=== PATIENT | male | born 1990 | race Caucasian/White ===

== ENCOUNTER 2017-05-03 06:01 | Emergency (ER) | payer SELFPAY ==
[~2017-05-03] VITALS: Ht 175.3 cm; Wt 60.3 kg
[2017-05-03] MEDS ORDERED: MVI, ADULT NO.4 WITH VIT K 10 ML, FOLIC ACID SYRINGE for ER 1 MG, THIAMINE 100 MG in IV... IV SCH ×4 (06:30)
[2017-05-03 06:41] LABS: BASO % 1 % (0-3); EOS # 0.1 x10^3/uL (0.0-0.7); EOS % 1 % (0-3); HEMATOCRIT 39.9 % (39.0-53.0); HEMOGLOBIN 13.9 g/dL (13.0-17.5); LYMPH # 1.4 x10^3/uL (1.0-4.8); LYMPH % 21 % (24-48); MEAN CORPUSCULAR HEMOGLOBIN 31 pg (25-35); MEAN CORPUSCULAR HGB CONC 35 g/dL (31-37); MEAN CORPUSCULAR VOLUME 89 fL (79-100); MONO # 0.7 x10^3/uL (0.0-1.1); MONO % 11 % (0-9); NEUT # 4.2 x10^3uL (1.8-7.7); NEUT % 66 % (31-73); PLATELET COUNT 174 x10^3/uL (140-400); RED CELL DISTRIBUTION WIDTH 12.6 % (11.5-14.5); WHITE BLOOD COUNT 6.4 x10^3/uL (4.0-11.0)
[2017-05-03] MEDS ORDERED: THIAMINE 200 MG/2 ML VIAL. IV ONE ×2 (06:42→06:44)
[2017-05-03] MEDS ORDERED: IV NORMAL SALINE 1,000ML 1,000 ML ONE (06:42)
[2017-05-03] MEDS ORDERED: MVI, ADULT NO.4 WITH VIT K 10 ML VIAL IV ONE ×2 (06:43→06:44)
[2017-05-03] MEDS ORDERED: FOLIC ACID 5 MG/ML SYRINGE for ER IV ONE ×2 (06:43→06:44)
[2017-05-03 06:53] LABS: ALBUMIN 3.8 g/dL (3.4-5.0); BACTERIA,URINE 0 /HPF (0-FEW); BARBITURATES NEG (NEG); BENZODIAZEPINES NEG (NEG); BILIRUBIN,URINE NEG (NEG); CALCIUM 8.7 mg/dL (8.5-10.1); CANNABINOIDS NEG (NEG); CLARITY,URINE CLEAR; COCAINE NEG (NEG); COLOR,URINE AMBER; CREATININE 0.9 mg/dL (0.7-1.3); DIRECT BILIRUBIN 0.2 mg/dL (0.0-0.2); GFR 101.2; GLUCOSE,URINE NEG (NEG); MAGNESIUM 2.2 mg/dL (1.8-2.4); METHADONE NEG (NEG); NITRITE,URINE NEG (NEG); OPIATES NEG (NEG); PHENCYCLIDINE NEG (NEG); POTASSIUM 3.1 mmol/L (3.5-5.1); RBC,URINE 0 /HPF (0-2); SQUAMOUS EPITHELIAL CELL,UR OCC /LPF; TOTAL BILIRUBIN 0.6 mg/dL (0.2-1.0); TOTAL PROTEIN 7.1 g/dL (6.4-8.2); UROBILINOGEN,URINE 1 mg/dL (0.2 mg/dL); WBC,URINE 0 /HPF (0-4)
[2017-05-03 06:55] LABS: AMPHETAMINE/METHAMPHETAMINE POS (NEG)
--- NOTE | 2017-05-03 07:10 | RAD ---
Portable chest, 05/03/2017 History: Overdose. The heart size is normal. The lungs are clear. There is no evidence of pleural fluid. IMPRESSION: Normal chest.
--- NOTE | 2017-05-03 07:14 | PHYS DOC ---
General Chief Complaint: DRUG ABUSE Stated Complaint: OVERDOSE Time Seen by MD: 06:03 Source: patient Exam Limitations: no limitations Problems: History of Present Illness Initial Comments Patient is a 26-year-old male who comes to the ED complaining of methamphetamine abuse. Patient states that he uses methamphetamine recreationally he says this is an occasional activity. He says he's had overdoses in the past I wanted to make sure that wasn't the case today. He says he's been using methamphetamines intravenously for the past 4 days, claims he used up to 2 g. He is here because he feels very dehydrated and is hoping to get some IV fluids and he has a headache with activity but improved with rest his mouth feels very dry and he feels very tired and sore. No chest pain or trouble breathing no focal neurologic deficit no hemoptysis unexplained weight loss. ED vital signs: 98.3, 94, 19, 130/79, 100% Timing/Duration: 1 week Severity: severe Modifying Factors: improves with rest Associated Symptoms: headaches, malaise, weakness Allergies: Coded Allergies: No Known Drug Allergies (Unverified , 05/03/17) Past Medical History Medical History: no pertinent history Surgical History: noncontributory Social History Smoker: cigarettes Alcohol: occasionally Drugs: other (methamphetamine) Review of Systems Constitutional: denies chills, denies diaphoresis, denies fever, malaise, weakness Respiratory: denies cough, denies shortness of breath, denies wheezing Cardiovascular: denies chest pain, denies palpitations, denies syncope Gastrointestinal: denies abdominal pain, denies nausea, denies vomiting Genitourinary: denies dysuria, denies frequency, denies hematuria Musculoskeletal: denies joint swelling, muscle pain (patient is chest), denies neck pain Psychiatric/Neurological: see HPI, anxiety, denies depressed, headache Hematologic/Lymphatic: denies blood clots, denies easy bleeding, denies easy bruising Physical Exam General Appearance: no apparent distress, thin Eyes: bilateral eye normal inspection, bilateral eye PERRL, bilateral eye EOMI Ear, Nose, Throat: hearing grossly normal, normal ENT inspection (dry membranes ), normal pharynx Neck: non-tender, supple Respiratory: normal breath sounds, no respiratory distress Cardiovascular: normal peripheral pulses, regular rate, rhythm Gastrointestinal: non tender, soft Back: no CVA tenderness, no vertebral tenderness Extremities: non-tender, normal inspection Neurologic/Psychiatric: ward aide II-XII nml as tested, no motor/sensory deficits, alert, normal mood/affect, oriented x 3 Skin: warm/dry (poor turgor) Orders, Labs, Meds PATIENT: TRAVIS VILLALPANDO ACCOUNT: [id number] : 1990 LOCATION: ER AGE: 26 SEX: M EXAM STATUS: REG ER ORD. PHYSICIAN: REMBERTO THOMAS DO REASON: OD PROCEDURE: PORTABLE CHEST 1V Portable chest, 05/03/2017 History: Overdose. The heart size is normal. The lungs are clear. There is no evidence of pleural fluid. IMPRESSION: Normal chest. DICTATED AND SIGNED BY: YOANNA ANTONIO MD DATE: 05/03/17 07 CC: PCP,NO; REMBERTO THOMAS DO ~ K+ 3.1, CK 324, UA +methamphetamine other labs reassuring. 40meq KCL PO given in ED, pt feeling better already with IV hydration (banana bag) 0737: Pt rechecked again, still feeling well no new/progressive complaints. 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 He states this is an occasional recreational activity that pt feels "went too far this time." Although pt also admits to "meth overdose" in past. He expresses agreement/understanding with treatment plan. Advised to seek treatment for substance abuse. Departure Time of Disposition: 07:40 Disposition: 01 HOME, SELF-CARE Diagnosis: methamphetamine abuse, hypokalemia, elev CK Condition: GOOD Patient Instructions: Creatine Kinase (CK), Hypokalemia-Brief, Methamphetamine Abuse, Complications Additional Instructions: Off work today, note given. Aggressive hydration with Gatorade and water about checked. 1 banana twice daily until doctor recheck. OTC multivitamins daily per package instructions. Prescription: Klor-Con potassium supplementation as written. Discontinue methamphetamine/substance abuse. Seek medical assistance if necessary. As discussed he will need close outpatient PCP follow-up to recheck her potassium and creatine kinase. Call today to schedule an appointment with your doctor for tomorrow for recheck of these labs and his current symptoms. It do not have a doctor ED staff can provide you names and numbers of local doctors taking new patients and highlight those who accept walk-in appointments. Return to the emergency department with new or changing symptoms. REMBERTO THOMAS DO May 03, 2017 07:14
--- NOTE | 2017-05-03 07:16 | EKG ---
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
[2017-05-03] MEDS ORDERED: POTA20TA4 PO (07:42)
[2017-05-03] MEDS ORDERED: POTASSIUM CHLORIDE 20 MEQ/15 ML ORAL LIQUID. PO ONE (07:45)
[2017-05-03] MEDS ORDERED: POTA10CA PO (07:52)
[2017-05-03 08:00] VITALS: BP 131/79
== END 2017-05-03 08:02 | disposition home or self-care (01) ==
LOC: ER 06:01
DX: E87.6 Hypokalemia (principal); F15.10 Other stimulant abuse, uncomplicated; R74.8 Abnormal levels of other serum enzymes; F17.210 Nicotine dependence, cigarettes, uncomplicated
CPT/HCPCS: 36415; 71010; 80048; 80076; 80307; 81001; 82550; 83735; 84484; 85025; 93005; 96365; 99285; G0480; G0479; J7030

== ENCOUNTER 2017-10-28 10:33 | Emergency (ER) | payer SELFPAY ==
[~2017-10-28] VITALS: Ht 175.3 cm; Wt 58.1 kg
[~2017-10-28 10:33] MED LIST: POTA10CA PO; POTA20TA4 PO
[2017-10-28 11:20] LABS: BASO % 0 % (0-3); EOS # 0.3 x10^3/uL (0.0-0.7); EOS % 3 % (0-3); HEMATOCRIT 39.7 % (39.0-53.0); LYMPH # 1.9 x10^3/uL (1.0-4.8); LYMPH % 21 % (24-48); MEAN CORPUSCULAR HEMOGLOBIN 31 pg (25-35); MEAN CORPUSCULAR HGB CONC 35 g/dL (31-37); MEAN CORPUSCULAR VOLUME 87 fL (79-100); MONO # 0.8 x10^3/uL (0.0-1.1); MONO % 9 % (0-9); NEUT % 67 % (31-73); PLATELET COUNT 216 x10^3/uL (140-400); RED BLOOD COUNT 4.55 x10^6/uL (4.30-5.70); RED CELL DISTRIBUTION WIDTH 12.9 % (11.5-14.5)
[2017-10-28 11:33] LABS: ETHANOL < 10 mg/dL (0-10); SALIC 0.4 mg/dL (2.8-20.0)
[2017-10-28 11:34] LABS: ACETAMIN < 2.0 mcg/mL (10-30)
[2017-10-28 11:37] LABS: ALBUMIN 3.9 g/dL (3.4-5.0); CALCIUM 8.9 mg/dL (8.5-10.1); CREATININE 0.8 mg/dL (0.7-1.3); DIRECT BILIRUBIN 0.2 mg/dL (0.0-0.2); GFR 115.1; POTASSIUM 3.1 mmol/L (3.5-5.1); TOTAL BILIRUBIN 0.8 mg/dL (0.2-1.0); TOTAL PROTEIN 7.2 g/dL (6.4-8.2)
--- NOTE | 2017-10-28 11:42 | PHYS DOC ---
Past History Past Medical History: Other Additional Past Medical Histor: substance abuse Past Surgical History: No Surgical History Smoking: Cigarettes Alcohol Use: Occasionally Drug Use: Cocaine, Marijuana, Methadone, Methamphetamine Adult General Chief Complaint Chief Complaint: SUICDAL IDEATION HPI HPI 27-year-old homeless male patient with history of substance abuse wants to ER and complaining of suicidal ideation and wants help for his using the right. Patient states he uses methamphetamine, marijuana and cocaine and injected himself with methamphetamine last night and today but he wants to stop using the right because he had a baby 3 months ago his girlfriend doesn't let him to see his baby. Patient states he had suicidal ideation since her fall 5 years old and had previous suicidal attempts with superficial cutting his wrists does not have any special plan now. Patient complaining of audial and visual hallucination and denies homicidal ideation. Patient is under influence of methamphetamine and is a poor historian and changing his complaint frequently. Review of Systems Review of Systems Constitutional: Denies fever or chills [] Eyes: Denies change in visual acuity, redness, or eye pain [] HENT: Denies nasal congestion or sore throat [] Respiratory: Denies cough or shortness of breath [] Cardiovascular: No additional information not addressed in HPI [] GI: Denies abdominal pain, nausea, vomiting, bloody stools or diarrhea [] : Denies dysuria or hematuria [] Musculoskeletal: Complaining of hurting all over[] Integument: Denies rash or skin lesions [] Neurologic: Denies headache, focal weakness or sensory changes [] Endocrine: Denies polyuria or polydipsia [] All other systems were reviewed and found to be within normal limits, except as documented in this note. Allergies Allergies Allergies Coded Allergies Type Severity Reaction Last Updated Verified No Known Drug Allergies 05/03/17 No Physical Exam Physical Exam Constitutional: Unkempt, mild distress, non-toxic appearance, anxious and agitated. [] HENT: Normocephalic, atraumatic, bilateral external ears normal, oropharynx moist, no oral exudates, nose normal. [] Eyes: PERRLA, EOMI, conjunctiva normal, no discharge. [] Neck: Normal range of motion, no tenderness, supple, no stridor. [] Cardiovascular:Heart rate regular rhythm, no murmur [] Lungs & Thorax: Bilateral breath sounds clear to auscultation [] Abdomen: Bowel sounds normal, soft, no tenderness, no masses, no pulsatile masses. [] Skin: Warm, dry, no erythema, no rash, several old and new superficial skin abrasion. [] Back: No tenderness, no CVA tenderness. [] Extremities: No tenderness, no cyanosis, no clubbing, ROM intact, no edema. [] Neurologic: Alert and oriented X 3, normal motor function, normal sensory function, no focal deficits noted. [] Psychologic: Anxious, suicidal ideation, hallucination Current Patient Data Lab Results Laboratory Tests Test 10/28/17 11:00 White Blood Count 9.0 x10^3/uL (4.0-11.0) Red Blood Count 4.55 x10^6/uL (4.30-5.70) Hemoglobin 14.0 g/dL (13.0-17.5) Hematocrit 39.7 % (39.0-53.0) Mean Corpuscular Volume 87 fL (79-100) Mean Corpuscular Hemoglobin 31 pg (25-35) Mean Corpuscular Hemoglobin Concent 35 g/dL (31-37) Red Cell Distribution Width 12.9 % (11.5-14.5) Platelet Count 216 x10^3/uL (140-400) Neutrophils (%) (Auto) 67 % (31-73) Lymphocytes (%) (Auto) 21 % (24-48) L Monocytes (%) (Auto) 9 % (0-9) Eosinophils (%) (Auto) 3 % (0-3) Basophils (%) (Auto) 0 % (0-3) Neutrophils # (Auto) 6.0 x10^3uL (1.8-7.7) Lymphocytes # (Auto) 1.9 x10^3/uL (1.0-4.8) Monocytes # (Auto) 0.8 x10^3/uL (0.0-1.1) Eosinophils # (Auto) 0.3 x10^3/uL (0.0-0.7) Basophils # (Auto) 0.0 x10^3/uL (0.0-0.2) Sodium Level 139 mmol/L (136-145) Potassium Level 3.1 mmol/L (3.5-5.1) L Chloride Level 101 mmol/L (98-107) Carbon Dioxide Level 28 mmol/L (21-32) Anion Gap 10 (6-14) Blood Urea Nitrogen 17 mg/dL (8-26) Creatinine 0.8 mg/dL (0.7-1.3) Estimated GFR (Cockcroft-Gault) 115.1 Glucose Level 120 mg/dL (70-99) H Calcium Level 8.9 mg/dL (8.5-10.1) Total Bilirubin 0.8 mg/dL (0.2-1.0) Direct Bilirubin 0.2 mg/dL (0.0-0.2) Aspartate Amino Transferase (AST) 21 U/L (15-37) Alanine Aminotransferase (ALT) 16 U/L (16-63) Alkaline Phosphatase 128 U/L (46-116) H Total Protein 7.2 g/dL (6.4-8.2) Albumin 3.9 g/dL (3.4-5.0) Salicylates Level 0.4 mg/dL (2.8-20.0) L Salicylate Last Dose Date Unknown Salicylate Last Dose Time Unknown Acetaminophen Level < 2.0 mcg/mL (10-30) L Acetaminophen Last Dose Date Unknown Acetaminophen Last Dose Time Unknown Ethyl Alcohol Level < 10 mg/dL (0-10) EKG EKG [] Radiology/Procedures Radiology/Procedures [] Course & Med Decision Making Course & Med Decision Making Pertinent Labs reviewed. (See chart for details) Evaluation of patient in ER showed 27-year-old male patient with complaining of suicidal ideation since age of 5 and using methamphetamine. Patient admitted to use methamphetamine last night and this morning but urine drug screen was false- negative. Patient changing his complaint and denied suicidal ideation and some point and complaining of suicidal ideation for a long time in other time. Patient had potassium of 2.1 and treated with oral potassium. Patient evaluated by [facility] staff and he agreed that patient is under influence of drugs and is not actively suicidal. [facility] staff tried to find a penitentiary or inpatient rehabilitation but was not able to find any place. Patient informed about needs to quit smoking and using drugs and follow up with rehabilitation as outpatient. Resources was given. discharge: I've spoken with the patient and/or caregivers. I've explained the patient's condition, diagnosis and treatment plan based on information available to me at this time. I've answered the patient's and/or caregivers questions and addressed any concerns. The patient and/or caregivers have a good understanding the patient's diagnosis, condition and treatment plan as can be expected at this point. Vital signs have been stabilized. The patient's condition is stable for discharge from the emergency department. The patient will pursue further outpatient evaluation with her primary care provider or other designated consulting physician as outlined in the discharge instructions. Patient and/or caregivers are agreeable to this plan of care and follow-up instructions have been explained in detail. The patient and/or caregivers have received these instructions in written format and expressed understanding of these discharge instructions. The patient and her caregivers are aware that if any significant change in condition or worsening of symptoms should prompt him to immediately return to this of the closest emergency department. If an emergent department is not readily available I would encourage him to call 911. Dragon Disclaimer Dragon Disclaimer This electronic medical record was generated, in whole or in part, using a voice recognition dictation system. Departure Departure: Impression: Primary Impression: Suicidal ideation Additional Impressions: Substance abuse Hypocalcemia Tobacco abuse Tobacco abuse counseling Homeless Disposition: HOME, SELF-CARE (At 1609) Condition: IMPROVED Referrals: PCPJANET (PCP) Patient Instructions: Hypokalemia, Methamphetamine Abuse, Complications, Smoking Cessation Additional Instructions: Follow-up with outpatient rehabilitation for drug abuse Follow-up with your primary care physician in 3-5 days Return to ER if not getting better Problem Qualifiers CLAUDIA CRESPO MD Oct 28, 2017 11:42
[2017-10-28 12:33] LABS: BARBITURATES NEG (NEG); BENZODIAZEPINES NEG (NEG); CANNABINOIDS NEG (NEG); COCAINE NEG (NEG); METHADONE NEG (NEG); OPIATES NEG (NEG); PHENCYCLIDINE NEG (NEG)
[2017-10-28 12:34] LABS: AMPHETAMINE/METHAMPHETAMINE NEG (NEG)
[2017-10-28 12:38] LABS: BILIRUBIN,URINE NEG (NEG); CLARITY,URINE CLOUDY; COLOR,URINE AMBER; GLUCOSE,URINE NEG (NEG); NITRITE,URINE NEG (NEG); UROBILINOGEN,URINE 0.2 mg/dL (0.2 mg/dL)
[2017-10-28 12:39] LABS: BACTERIA,URINE FEW /HPF (0-FEW); SPERM,URINE PRESENT /HPF; SQUAMOUS EPITHELIAL CELL,UR FEW /LPF
[2017-10-28] MEDS ORDERED: IV NORMAL SALINE 1,000ML 1,000 ML IV ONE (12:45)
[2017-10-28] MEDS ORDERED: POTASSIUM CHLORIDE 20 MEQ TABLET.ER. PO ONE (13:15)
[2017-10-28] MEDS ORDERED: DIPHTH,PERTUSS(ACELL),TET TOX 0.5 ML DISP.SYRIN. VAX IM ONE (14:15)
[2017-10-28 16:29] VITALS: BP 120/82
== END 2017-10-28 16:35 | disposition home or self-care (01) ==
LOC: ER 10:33 → EEVIPCON 10:33 → ER 16:35
DX: R45.851 Suicidal ideations (principal); E83.51 Hypocalcemia; F15.10 Other stimulant abuse, uncomplicated; F14.10 Cocaine abuse, uncomplicated; F12.10 Cannabis abuse, uncomplicated; F19.10 Other psychoactive substance abuse, uncomplicated; F17.210 Nicotine dependence, cigarettes, uncomplicated; Z59.0 Homelessness; Z91.5 Personal history of self-harm; Z71.6 Tobacco abuse counseling
CPT/HCPCS: 36415; 80048; 80076; 80307; 81001; 85025; 90471; 90715; 96360; 99284; G0480; G0479; J7030

== ENCOUNTER 2017-10-30 09:44 | Emergency (ER) | payer SELFPAY ==
[~2017-10-30] VITALS: Ht 175.3 cm; Wt 58.1 kg
[2017-10-30] MEDS ORDERED: IV NORMAL SALINE 1,000ML 1,000 ML IV SCH (09:53)
[2017-10-30] MEDS ORDERED: 0.9 % SODIUM CHLORIDE 10 ML DISP.SYRIN. IV PRN (10:00)
--- NOTE | 2017-10-30 10:10 | PHYS DOC ---
Past History Past Medical History: Other Additional Past Medical Histor: substance abuse Past Surgical History: No Surgical History Smoking: Cigarettes Alcohol Use: Occasionally Drug Use: Cocaine, Marijuana, Methadone, Methamphetamine Adult General Chief Complaint Chief Complaint: DRUG ABUSE HPI HPI This Is a pleasant 27-year-old male known history of polypharmacy drug abuse who presents with amphetamine secretion. He was last seen here Tuesday for similar presentation but stated addiction issues when he wanted clearance oh they had sobered him up and given him fluids and a place to stay which she subsequently do not follow-up. Patient last used several hours prior to arrival and was sitting on the floor in a car parts store EMS was dispatched to the store because he refused to the ground. Patient is not complaining of chest pain , shortness of breath he just feels anxious and cannot sleep. He denies any arm pain, leg pain although he does uses methamphetamines by smoking it and injecting it he denies any fevers, chills, changes in vision, rash localized swelling or other complaints. His main issue now is he says he cannot get his mind slowdown as a hard time resting Review of Systems Review of Systems Constitutional: Denies fever or chills [] Eyes: Denies change in visual acuity, redness, or eye pain [] HENT: Denies nasal congestion or sore throat [] Respiratory: Denies cough or shortness of breath [] Cardiovascular: No additional information not addressed in HPI [] GI: Denies abdominal pain, nausea, vomiting, bloody stools or diarrhea [] : Denies dysuria or hematuria [] Musculoskeletal: Denies back pain or joint pain [] Integument: Denies rash or skin lesions [] Neurologic: Denies headache, focal weakness or sensory changes [] Endocrine: Denies polyuria or polydipsia [] All other systems were reviewed and found to be within normal limits, except as documented in this note. Allergies Allergies Allergies Coded Allergies Type Severity Reaction Last Updated Verified No Known Drug Allergies 05/03/17 No Physical Exam Physical Exam Of the vital signs of the chart this time patient noted to be tachycardic and tachypnea. No fever or hypoxia is noted Constitutional: he is very thin cachectic and has significant muscle wasting around the temples he has multiple areas of excoriation on the scalp face from picking. HENT: Normocephalic, atraumatic, bilateral external ears normal, oropharynx dry no erythema no tonsillar hypertrophy, no oral exudates, nose normal. [] Eyes: PERRLA, EOMI, conjunctiva normal, no discharge. [] Neck: Normal range of motion, no tenderness, supple, no stridor. [] Cardiovascular: Tachycardia with no murmurs gallops or rubs Lungs & Thorax: Bilateral breath sounds clear to auscultation [] Abdomen: Bowel sounds normal, soft, no tenderness, no masses, no pulsatile masses. [] Skin: Warm, dry, will injection sites on his arms with no evidence of secondary infection or cellulitis no warmth no lymphadenitis noted Back: No tenderness,] Extremities: No tenderness, no cyanosis, no clubbing, ROM intact, no edema. [] Neurologic: Alert and oriented X 3, patient is a great deal of motor agitation he cannot get comfortable and keeps flopping all over the bed he is able to provide us his name date of the phone number for his mother and his ex- fianc.[] Psychologic: Patient is very anxious but able answer all questions without issue denies any auditory or visual hallucinations at this time Current Patient Data Vital Signs Vital Signs Date Time Temp Pulse Resp B/P (MAP) Pulse Ox O2 Delivery O2 Flow Rate FiO2 10/30/17 09:51 97.5 113 22 99 Room Air EKG EKG []EKG read by me time an EKG of 10:23 AM 10/30/2017 demonstrate a heart rate of 87 sinus rhythm there is a P wave and QRS DE interval is 150 which is normal, QRS width is 100 which is normal, QTC 455 which is normal. There is no ST segment or T-wave changes consistent with acute coronary ischemia. There is no prolonged QT there is no Brugada syndrome, there is no evidence of hyper acute T waves consistent with hyperkalemia. Radiology/Procedures Radiology/Procedures [] Course & Med Decision Making Course & Med Decision Making Pertinent Labs and Imaging studies reviewed. (See chart for details) []Patient is known metastases amphetamine abuser who presents with motor agitation and difficulty sleeping after using methamphetamines. In the last 4-6 hours. We will try to treat his acute agitation with Geodon and Ativan give him some fluids for his tachycardia and to ensure that he is not having any other competition from IV injecting his drugs of abuse. On physical exam is no obvious signs of cellulitis or localized infection or abscess at the injection sites. Patient has no specific findings for endocarditis as are no Janeway's lesions or oslers is noted on physical exam he was given IV Ativan and some Geodon IM for his acute agitation and CBC and CMP are taken and had been returned. Patient is a potassium of 3.0 off from oral replacement. Patient's lab tests are otherwise unremarkable. He's been resting quietly and comfortable is no longer agitated he is sleeping and easily arousable and will be disposition home with family. I believe patient's acute agitation is associated with amphetamine abuse self admitted there is no obvious signs of endocarditis or other infectious etiology that would be causing his agitation. My differential for acute agitation includes but is not limited to retinal pathology, vision loss, migraine headache, seizure disorder, dementia, alcohol, alcohol withdrawal, medication withdrawal, narcolepsy, psychiatric illness, metabolic encephalopathy, hypothyroidism, renal failure, systemic infection, central nervous system ischemia, discharge: I've spoken with the patient and/or caregivers. I've explained the patient's condition, diagnosis and treatment plan based on information available to me at this time. I've answered the patient's and/or caregivers questions and addressed any concerns. The patient and/or caregivers have a good understanding the patient's diagnosis, condition and treatment plan as can be expected at this point. Vital signs have been stabilized. The patient's condition is stable for discharge from the emergency department. The patient will pursue further outpatient evaluation with her primary care provider or other designated consulting physician as outlined in the discharge instructions. Patient and/or caregivers are agreeable to this plan of care and follow-up instructions have been explained in detail. The patient and/or caregivers have received these instructions in written format and expressed understanding of these discharge instructions. The patient and her caregivers are aware that if any significant change in condition or worsening of symptoms should prompt him to immediately return to this of the closest emergency department. If an emergent department is not readily available I would encourage him to call 911. Yury Disclaimer Yury Disclaimer This electronic medical record was generated, in whole or in part, using a voice recognition dictation system. Departure Departure: Impression: Primary Impression: Amphetamine abuse Additional Impression: Hypokalemia Disposition: HOME, SELF-CARE Condition: STABLE Referrals: PCP,JANET (PCP) Patient Instructions: Alcohol and Drug Addiction, Finding Treatment, Amphetamine Abuse, Drug Abuse and Addiction-SportsMed Additional Instructions: discharge: I've spoken with the patient and/or caregivers. I've explained the patient's condition, diagnosis and treatment plan based on information available to me at this time. I've answered the patient's and/or caregivers questions and addressed any concerns. The patient and/or caregivers have a good understanding the patient's diagnosis, condition and treatment plan as can be expected at this point. Vital signs have been stabilized. The patient's condition is stable for discharge from the emergency department. The patient will pursue further outpatient evaluation with her primary care provider or other designated consulting physician as outlined in the discharge instructions. Patient and/or caregivers are agreeable to this plan of care and follow-up instructions have been explained in detail. The patient and/or caregivers have received these instructions in written format and expressed understanding of these discharge instructions. The patient and her caregivers are aware that if any significant change in condition or worsening of symptoms should prompt him to immediately return to this of the closest emergency department. If an emergent department is not readily available I would encourage him to call 911. Problem Qualifiers YOVANY LOCK MD Oct 30, 2017 10:10
--- NOTE | 2017-10-30 10:14 | EKG ---
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
[2017-10-30 10:18] LABS: BASO # 0.1 x10^3/uL (0.0-0.2); BASO % 1 % (0-3); EOS # 0.1 x10^3/uL (0.0-0.7); EOS % 2 % (0-3); HEMATOCRIT 39.6 % (39.0-53.0); HEMOGLOBIN 13.8 g/dL (13.0-17.5); LYMPH # 1.6 x10^3/uL (1.0-4.8); LYMPH % 22 % (24-48); MEAN CORPUSCULAR HEMOGLOBIN 31 pg (25-35); MEAN CORPUSCULAR HGB CONC 35 g/dL (31-37); MEAN CORPUSCULAR VOLUME 88 fL (79-100); MONO # 0.6 x10^3/uL (0.0-1.1); MONO % 8 % (0-9); NEUT # 5.2 x10^3uL (1.8-7.7); NEUT % 68 % (31-73); PLATELET COUNT 222 x10^3/uL (140-400); RED CELL DISTRIBUTION WIDTH 12.9 % (11.5-14.5); WHITE BLOOD COUNT 7.6 x10^3/uL (4.0-11.0)
[2017-10-30 10:24] LABS: CALCIUM 9.1 mg/dL (8.5-10.1); CREATININE 0.4 mg/dL (0.7-1.3); GFR 256.1
[2017-10-30] MEDS ORDERED: ZIPRASIDONE IM 20 MG VIAL. IM ONE (10:30)
[2017-10-30] MEDS ORDERED: LORazepam 2 MG/ML VIAL IV ONE (10:30)
[2017-10-30 11:30] VITALS: BP 111/57
== END 2017-10-30 19:14 | disposition home or self-care (01) ==
LOC: ER 09:44
DX: F15.10 Other stimulant abuse, uncomplicated (principal); E87.6 Hypokalemia; F12.10 Cannabis abuse, uncomplicated; F14.10 Cocaine abuse, uncomplicated; F19.10 Other psychoactive substance abuse, uncomplicated; F17.210 Nicotine dependence, cigarettes, uncomplicated
CPT/HCPCS: 36415; 80048; 84443; 85025; 93005; 96361; 96372; 96374; 99285; J2060; J3486; J7030

== ENCOUNTER 2018-06-28 15:23 | Emergency (ER) | payer SELFPAY ==
[~2018-06-28] VITALS: Ht 175.3 cm; Wt 72.5 kg
--- NOTE | 2018-06-28 16:19 | RAD ---
CHEST PA LATERAL dated 06/28/2018 5:08 PM. Comparison: 05/03/2017 Clinical Indication: PA AND LATERAL CHEST XRAY - COUGH x 3 DAYS, HOMELESS AND LIVES IN [place]. Findings: PA and lateral views of the chest were obtained. Heart and mediastinal contours within normal limits. Lungs are clear without focal consolidation. Vascular interstitium within normal limits. No pleural effusion or pneumothorax. Impression: No acute radiographic abnormality. Electronically signed by: Germán Perdue MD (06/28/2018 4:16 PM) [id number]
--- NOTE | 2018-06-28 17:17 | PHYS DOC ---
Past History Past Medical History: Other Additional Past Medical Histor: substance abuse Past Surgical History: No Surgical History Smoking: Cigarettes Alcohol Use: Occasionally Drug Use: Cocaine, Marijuana, Methadone, Methamphetamine Adult General Chief Complaint Chief Complaint: FEVER HPI HPI 27-year-old male presents with 3 day history of productive cough with yellow sputum, body aches, sore throat, nasal congestion, mild headache. Patient states that his symptoms just seem to be getting worse. He lives [facility] and has to walk to work in the cold weather. He spends a few hours a day outside. He is not sure about sick contacts as he is exposed to different people time. He denies vomiting or diarrhea. Review of Systems Review of Systems Constitutional: Denies fever or chills [] Eyes: Denies change in visual acuity, redness, or eye pain [] HENT: Sore throat, nasal congestion[] Respiratory: Productive cough[] Cardiovascular: No additional information not addressed in HPI [] GI: Denies abdominal pain, nausea, vomiting, bloody stools or diarrhea [] : Denies dysuria or hematuria [] Musculoskeletal: Denies back pain or joint pain [] Integument: Denies rash or skin lesions [] Neurologic: Denies headache, focal weakness or sensory changes [] Endocrine: Denies polyuria or polydipsia [] All other systems were reviewed and found to be within normal limits, except as documented in this note. Allergies Allergies Allergies Coded Allergies Type Severity Reaction Last Updated Verified No Known Drug Allergies 05/03/17 No Physical Exam Physical Exam Constitutional: Well developed, well nourished, no acute distress, non-toxic appearance. [] HENT: Normocephalic, atraumatic, bilateral external ears normal, oropharynx erythematous, no oral exudates, nose normal. [] Eyes: PERRLA, EOMI, conjunctiva normal, no discharge. [] Neck: Normal range of motion, no tenderness, supple, no stridor. [] Cardiovascular:Heart rate regular rhythm, no murmur [] Lungs & Thorax: Bilateral breath sounds clear to auscultation [] Abdomen: Bowel sounds normal, soft, no tenderness, no masses, no pulsatile masses. [] Skin: Warm, dry, no erythema, no rash. [] Back: No tenderness, no CVA tenderness. [] Extremities: No tenderness, no cyanosis, no clubbing, ROM intact, no edema. [] Neurologic: Alert and oriented X 3, normal motor function, normal sensory function, no focal deficits noted. [] Psychologic: Affect normal, judgement normal, mood normal. [] EKG EKG [] Radiology/Procedures Radiology/Procedures [] Impressions: CHEST PA LATERAL dated 06/28/2018 5:08 PM. Comparison: 05/03/2017 Clinical Indication: PA AND LATERAL CHEST XRAY - COUGH x 3 DAYS, HOMELESS AND LIVES IN [place]. Findings: PA and lateral views of the chest were obtained. Heart and mediastinal contours within normal limits. Lungs are clear without focal consolidation. Vascular interstitium within normal limits. No pleural effusion or pneumothorax. Impression: No acute radiographic abnormality. Electronically signed by: Janak Perdue MD (06/28/2018 4:16 PM) [id number] DICTATED AND SIGNED BY: JANAK PERDUE MD DATE: 06/28/18 1616 CC: PERICO MALDONADO DO; PCP,JANET ~ Course & Med Decision Making Course & Med Decision Making Pertinent Labs and Imaging studies reviewed. (See chart for details) Patient's chest x-ray is unremarkable. His rapid strep is negative. I believe the patient just has a viral illness. He does not have a fever so influenza does not seem highly likely. He really is outside the window of Tamiflu anyway. I will recommend supportive care and is much rest as he can get. He is stable for discharge at this time. [] Dragon Disclaimer Dragon Disclaimer This electronic medical record was generated, in whole or in part, using a voice recognition dictation system. Departure Departure: Referrals: PCP,JANET (PCP) PERICO MALDONADO DO Jun 28, 2018 17:17
[2018-06-28 17:32] VITALS: BP 106/66
== END 2018-06-28 17:32 | disposition home or self-care (01) ==
LOC: ER 15:23
DX: R05 Cough (principal); J02.9 Acute pharyngitis, unspecified; R51 Headache; M79.10 Myalgia, unspecified site; F17.210 Nicotine dependence, cigarettes, uncomplicated; Z59.0 Homelessness
CPT/HCPCS: 71046; 87070; 87880; 99285

== ENCOUNTER 2021-02-23 16:23 | Emergency (ER) | payer SELFPAY ==
[~2021-02-23] VITALS: Ht 175.3 cm; Wt 77.2 kg
[2021-02-23 18:21] LABS: BILIRUBIN,URINE NEG (NEG); CLARITY,URINE CLEAR; COLOR,URINE YELLOW; GLUCOSE,URINE NEG (NEG); NITRITE,URINE NEG (NEG); UROBILINOGEN,URINE 0.2 mg/dL (0.2 mg/dL)
[2021-02-23 18:23] LABS: RBC,URINE 0 /HPF (0-2)
[2021-02-23 18:24] LABS: BACTERIA,URINE MOD /HPF (0-FEW); SQUAMOUS EPITHELIAL CELL,UR OCC /LPF
[2021-02-23 18:51] LABS: BASO # 0.1 x10^3/uL (0.0-0.2); BASO % 1 % (0-3); EOS # 0.3 x10^3/uL (0.0-0.7); EOS % 4 % (0-3); HEMATOCRIT 39.3 % (39.0-53.0); HEMOGLOBIN 13.4 g/dL (13.0-17.5); LYMPH # 2.5 x10^3/uL (1.0-4.8); LYMPH % 33 % (24-48); MEAN CORPUSCULAR HEMOGLOBIN 31 pg (25-35); MEAN CORPUSCULAR HGB CONC 34 g/dL (31-37); MEAN CORPUSCULAR VOLUME 92 fL (79-100); MONO # 0.7 x10^3/uL (0.0-1.1); MONO % 10 % (0-9); NEUT # 3.9 x10^3uL (1.8-7.7); NEUT % 52 % (31-73); PLATELET COUNT 214 x10^3/uL (140-400); RED BLOOD COUNT 4.28 x10^6/uL (4.30-5.70); RED CELL DISTRIBUTION WIDTH 12.9 % (11.5-14.5); WHITE BLOOD COUNT 7.4 x10^3/uL (4.0-11.0)
[2021-02-23 19:17] LABS: CALCIUM 8.3 mg/dL (8.5-10.1); GFR 87.2; POTASSIUM 3.5 mmol/L (3.5-5.1)
--- NOTE | 2021-02-23 21:00 | PHYS DOC ---
Past History Past Medical History: Depression, Other Additional Past Medical Histor: Drug abuse (NITIN COX APRN) Past Surgical History: No Surgical History (NITIN COX APRN) Smoking: Cigarettes Alcohol Use: None Drug Use: Cocaine, Marijuana, Methadone, Methamphetamine (NITIN COX APRN) General Adult EDM: Chief Complaint: PSYCH EVALUATION HPI: HPI: Patient is a 30-year-old male who presents for psych evaluation. Patient states "I am looking to for alcohol and methamphetamine use". Patient denies SI or HI. Patient has history of schizophrenia and drug abuse. (NITIN COX APRN) Review of Systems: Review of Systems: Constitutional: Denies fever or chills Eyes: Denies change in visual acuity HENT: Denies nasal congestion or sore throat Respiratory: Denies cough or shortness of breath Cardiovascular: Denies chest pain or edema GI: Denies abdominal pain, nausea, vomiting, bloody stools or diarrhea : Denies dysuria Musculoskeletal: Denies back pain or joint pain Integument: Denies rash Neurologic: Denies headache, focal weakness or sensory changes Endocrine: Denies polyuria or polydipsia Lymphatic: Denies swollen glands Psychiatric: Reports history of depression and anxiety (NITIN COX APRN) Allergies: Allergies: Allergies Coded Allergies Type Severity Reaction Last Updated Verified No Known Drug Allergies 05/03/17 No (NITIN COX APRN) Physical Exam: PE: Constitutional: Well developed, well nourished, no acute distress, non-toxic appearance. [] HENT: Normocephalic, atraumatic, bilateral external ears normal, oropharynx moist, no oral exudates, nose normal. [] Eyes: PERRLA, EOMI, conjunctiva normal, no discharge. [] Neck: Normal range of motion, no tenderness, supple, no stridor. [] Cardiovascular:Heart rate regular rhythm, no murmur [] Lungs & Thorax: Bilateral breath sounds clear to auscultation [] Abdomen: Bowel sounds normal, soft, no tenderness, no masses, no pulsatile masses. [] Skin: Warm, dry, no erythema, no rash. [] Back: No tenderness, no CVA tenderness. [] Extremities: No tenderness, no cyanosis, no clubbing, ROM intact, no edema. [] Neurologic: Alert and oriented X 3, normal motor function, normal sensory function, no focal deficits noted. [] Psychologic: Affect normal, judgement normal, mood normal. [] (NITIN COX APRN) Current Patient Data: Labs: Laboratory Tests Test 02/23/21 17:30 02/23/21 18:09 Urine Collection Type Unknown Urine Color Yellow Urine Clarity Clear Urine pH 5.5 Urine Specific [place] >=1.030 Urine Protein Neg (NEG-TRACE) Urine Glucose (UA) Neg mg/dL (NEG) Urine Ketones (Stick) Neg mg/dL (NEG) Urine Blood Neg (NEG) Urine Nitrite Neg (NEG) Urine Bilirubin Neg (NEG) Urine Urobilinogen Dipstick 0.2 mg/dL (0.2 mg/dL) Urine Leukocyte Esterase Neg (NEG) Urine RBC 0 /HPF (0-2) Urine WBC 1-4 /HPF (0-4) Urine Squamous Epithelial Cells Occ /LPF Urine Bacteria Mod /HPF (0-FEW) Urine Mucus Marked /LPF White Blood Count 7.4 x10^3/uL (4.0-11.0) Red Blood Count 4.28 x10^6/uL (4.30-5.70) L Hemoglobin 13.4 g/dL (13.0-17.5) Hematocrit 39.3 % (39.0-53.0) Mean Corpuscular Volume 92 fL (79-100) Mean Corpuscular Hemoglobin 31 pg (25-35) Mean Corpuscular Hemoglobin Concent 34 g/dL (31-37) Red Cell Distribution Width 12.9 % (11.5-14.5) Platelet Count 214 x10^3/uL (140-400) Neutrophils (%) (Auto) 52 % (31-73) Lymphocytes (%) (Auto) 33 % (24-48) Monocytes (%) (Auto) 10 % (0-9) H Eosinophils (%) (Auto) 4 % (0-3) H Basophils (%) (Auto) 1 % (0-3) Neutrophils # (Auto) 3.9 x10^3uL (1.8-7.7) Lymphocytes # (Auto) 2.5 x10^3/uL (1.0-4.8) Monocytes # (Auto) 0.7 x10^3/uL (0.0-1.1) Eosinophils # (Auto) 0.3 x10^3/uL (0.0-0.7) Basophils # (Auto) 0.1 x10^3/uL (0.0-0.2) Sodium Level 144 mmol/L (136-145) Potassium Level 3.5 mmol/L (3.5-5.1) Chloride Level 107 mmol/L (98-107) Carbon Dioxide Level 28 mmol/L (21-32) Anion Gap 9 (6-14) Blood Urea Nitrogen 17 mg/dL (8-26) Creatinine 1.0 mg/dL (0.7-1.3) Estimated GFR (Cockcroft-Gault) 87.2 Glucose Level 93 mg/dL (70-99) Calcium Level 8.3 mg/dL (8.5-10.1) L Ethyl Alcohol Level < 10 mg/dL (0-10) Vital Signs: Vital Signs Date Time Temp Pulse Resp B/P (MAP) Pulse Ox O2 Delivery O2 Flow Rate FiO2 02/23/21 19:29 93 18 104/53 (70) 97 Room Air 02/23/21 17:36 97.2 (NITIN COX APRN) EKG: EKG: [] (NITIN COX APRN) Radiology/Procedures: Radiology/Procedures: [] (NITIN COX APRN) Heart Score: C/O Chest Pain: No Risk Factors: Risk Factors: DM, Current or recent (<one month) smoker, HTN, HLP, family history of CAD, obesity. Risk Scores: Score 0 - 3: 2.5% MACE over next 6 weeks - Discharge Home Score 4 - 6: 20.3% MACE over next 6 weeks - Admit for Clinical Observation Score 7 - 10: 72.7% MACE over next 6 weeks - Early Invasive Strategies (NITIN COX APRN) Course & Med Decision Making: Course & Med Decision Making Pertinent Labs and Imaging studies reviewed. (See chart for details) [] 30-year-old male presents for psych evaluation. Patient is wanting to be admitted for alcohol and methamphetamine abuse. Patient states he drank a gallon of vodka today. Patient denies any SI or HI. Patient is schizophrenic, history of anxiety and depression, and drug abuse. All labs are unremarkable. Alcohol is negative. UDS positive for marijuana. PAT team consulted. Explained to patient that PAT team would speak with him regarding outpatient or inpatient options. Transfer of patient care to Dr. Cain at [phone] (NITIN COX APRN) Course & Med Decision Making Did not see or evaluate patient. Agree with INPUT OUTPUT CLERK's work-up and disposition per note. (YAYA CAIN MD) Dragon Disclaimer: Dragon Disclaimer: This electronic medical record was generated, in whole or in part, using a voice recognition dictation system. (NITIN COX APRN) Departure Departure: Impression: Primary Impression: Drug abuse Disposition: HOME / SELF CARE / HOMELESS Condition: STABLE Referrals: PCP,NO (PCP) NITIN COX APRN Feb 23, 2021 21:00 YAYA CAIN MD Feb 23, 2021 22:00
[2021-02-23 21:15] LABS: BARBITURATES NEG (NEG); BENZODIAZEPINES NEG (NEG); CANNABINOIDS POS (NEG); COCAINE NEG (NEG); METHADONE NEG (NEG); OPIATES NEG (NEG); PHENCYCLIDINE NEG (NEG)
[2021-02-23 21:30] LABS: AMPHETAMINE/METHAMPHETAMINE NEG (NEG)
[2021-02-24 02:15] VITALS: BP 120/78
== END 2021-02-24 02:16 | disposition short-term general hospital (02) ==
LOC: ER 16:23
DX: F19.10 Other psychoactive substance abuse, uncomplicated (principal); F32.9 Major depressive disorder, single episode, unspecified; F17.210 Nicotine dependence, cigarettes, uncomplicated; F12.10 Cannabis abuse, uncomplicated; F15.10 Other stimulant abuse, uncomplicated; F14.10 Cocaine abuse, uncomplicated; Z20.822 Contact with and (suspected) exposure to COVID-19
CPT/HCPCS: 36415; 80048; 80307; 81001; 85025; 87086; 87426; 99285; C9803; G0480; U0003